=== PATIENT | male | born 1995 | race African-American/Black ===

== ENCOUNTER 2025-06-08 08:44 | Emergency (ER) | payer OTHER ==
[~2025-06-08] VITALS: Ht 177.8 cm; Wt 61.4 kg
[2025-06-08 08:54] VITALS: BP 115/65; PULSE 71; RESP 18; TEMP 98; O2SAT 100
[2025-06-08 09:27] LABS: PLATELET COUNT (AUTO) 256 K/uL (150-450); RED BLOOD CELL COUNT(AUTO) 6.71 MIL/uL (4.50-5.90); RED CELL DISTRIBUTION WIDTH 15.3 % (11.5-14.5); WHITE BLOOD COUNT (AUTO) 6.0 K/uL (4.5-11.0)
[2025-06-08 09:28] LABS: RBC MORPHOLOGY COMMENT ABNORMAL RBC MORPH
[2025-06-08 09:33] LABS: CALCIUM, TOTAL 9.0 mg/dL (8.8-10.5); CREATININE 0.73 mg/dL (0.60-1.30); GLOMERULAR FILTR. RATE CALC > 60 mL/min (>60); GLUCOSE,RANDOM 85 mg/dL (70-110); SODIUM SERUM 137 mmol/L (136-145); UREA NITROGEN, BLOOD 12 mg/dL (7-18)
[2025-06-08 09:38] LABS: APPEARANCE,URINE CLEAR (CLEAR); GLUCOSE, URINE (UA) NEGATIVE (NEGATIVE); LEUKOCYTE ESTERASE ,URINE NEGATIVE (NEGATIVE); NITRATE,URINE NEGATIVE (NEGATIVE); OCCULT BLOOD,URINE NEGATIVE (NEGATIVE); SPECIFIC GRAVITIY, URINE 1.016 (1.003-1.030)
[2025-06-08] MEDS: MAG HYDROX/ALUMINUM HYD/SIMETH ES 30 ML SUSPENSION UDCUP PO ONE (10:31)
[2025-06-08] MEDS: FAMOTIDINE 20 MG TABLET PO ONE (10:31)
[2025-06-08 10:40] LABS: TROPONIN I-HIGH SENSITIVITY 4 ng/L (<76)
== END 2025-06-08 13:11 | disposition home or self-care (01) ==
LOC: EMS 08:44
DX: K21.9 Gastro-esophageal reflux disease without esophagitis (principal); F41.9 Anxiety disorder, unspecified; R07.89 Other chest pain
CPT/HCPCS: 80048; 81003; 83690; 84484; 85025; 93005; 99284